=== PATIENT | female | born 1980 | race Caucasian/White ===

== ENCOUNTER → 2018-07-11 18:24 | Outpatient (CLI) | payer MEDICAID, SELFPAY ==
--- NOTE | 2018-07-11 18:34 | US_ITS ---
STUDY: ABDOMINAL ULTRASOUND - RIGHT UPPER QUADRANT REASON FOR VISIT: Female, 37 years old. Right-sided pain TECHNIQUE: Ultrasound evaluation of the right upper quadrant was performed with real-time and static juarez-scale imaging. TECHNICAL QUALITY: Adequate. COMPARISON: CT dated 10/03/2014 FINDINGS: Liver: The liver measures 12.7 cm. There is normal echogenicity of the liver. The bile ducts are within normal limits. There is hepatic color flow. The direction of portal flow is hepatopetal. There is no demonstrated mass lesion. Gallbladder: Normal distended gallbladder. The gallbladder wall measures 2 mm. There is a negative sonographic Gonzales's sign. There is no pericholecystic fluid. There are no gallstones. Common Bile Duct (C.B.D.): The common bile duct measures 5 mm. Pancreas: Normal size of the head, body and tail of the pancreas. There is normal echogenicity of the pancreas. There is no demonstrated pancreatic mass or cyst. Right Kidney: Normal size of the right kidney. The right kidney measures 9.7 cm. Normal renal cortex. There is no demonstrated renal mass or cyst. There is no right hydronephrosis. US/Abdomen Limited IMPRESSION: Normal right upper quadrant ultrasound examination. Electronically Signed: Bharath Alexander, at 20:04 EDT Tel , Service support ,
== END ==
PROVIDERS: Family Provider Internal Medicine; PCP Internal Medicine; Visit Provider Nurse Practitioner
DX: R10.9 Unspecified abdominal pain (principal)
CPT/HCPCS: 76705

== ENCOUNTER 2021-06-17 18:09 | Emergency (ER) | payer SELFPAY ==
[2021-06-17 18:10] VITALS: BP 117/71; PULSE 92; RESP 16; TEMP 36.1; O2SAT 98; BMI 27.4
--- NOTE | 2021-06-17 18:15 | RAD_ITS ---
STUDY: X-RAY - RIGHT ANKLE REASON FOR EXAM: Female, 40 years old. INJURY TECHNIQUE: 3 view(s) of the ankle. COMPARISON: None. FINDINGS: Normal visualized distal tibia and fibula. Normal medial and lateral malleoli. Normal tibiotalar articulation and ankle mortise. Normal visualized talus and calcaneus. Nondisplaced fracture of the cuboid is seen on all 3 views. Lateral foot soft tissue swelling. The soft tissue structures are unremarkable. RAD/Ankle min 3 Views IMPRESSION: Suspect cuboid fracture. Dedicated foot x-ray or CT recommended. Electronically Signed: Nishant Hillman MD ([place]) at 18:35 EDT , Service support ,
--- NOTE | 2021-06-17 19:35 | CT_ITS ---
EXAM: CT RIGHT LOWER EXTREMITY WITHOUT INTRAVENOUS CONTRAST, FOOT CLINICAL INDICATION: Fall yesterday, twisting injury of the right ankle, pain TECHNIQUE: Helically acquired images were obtained of the right foot without intravenous contrast. This CT exam was performed using one or more of the following dose reduction techniques: automated exposure control, adjustment of the mA and/or kV according to patient size, and/or use of iterative reconstruction technique. This report was created using [employer] report generation technology. COMPARISON: X-ray from earlier today FINDINGS: BONES/JOINTS: Nondisplaced fracture of the anterior calcaneal process (image 14 series 601). Nondisplaced fracture of the dorsal, proximal cuboid (image 17 series 601). Preservation of the joint space. No sclerotic or destructive changes. SOFT TISSUES: Soft tissue swelling of the lateral and anterior foot. No radiopaque foreign body. CT/Extremity Lower without Contra IMPRESSION: 1. Nondisplaced calcaneal anterior process fracture. 2. Nondisplaced cuboid fracture. Electronically Signed: Nishant Hillman MD ([place]) at 20:25 EDT , Service support ,
--- NOTE | 2021-06-17 20:08 | RAD_ITS ---
STUDY: X-RAY - RIGHT KNEE REASON FOR EXAM: Female, 40 years old. fall TECHNIQUE: 4 view(s) of the knee. COMPARISON: None. FINDINGS: Normal visualized distal femur. Normal visualized proximal tibia and fibula. Normal proximal tibiofibular articulation. Normal medial femorotibial compartment. Normal lateral femorotibial compartment. Normal patellofemoral articulation. There is no demonstrated joint effusion. The soft tissue structures are unremarkable. RAD/Knee 4 or More Views IMPRESSION: Normal x-ray examination of the knee. Electronically Signed: Nishant Hillman MD ([place]) at 20:30 EDT , Service support ,
--- NOTE | 2021-06-17 20:20 | RAD_ITS ---
STUDY: X-RAY - PELVIS AND RIGHT HIP REASON FOR EXAM: Female, 40 years old. fall TECHNIQUE: 3 views of the pelvis and hip. COMPARISON: None. FINDINGS: There is a non-specific bowel gas pattern. Normal visualized soft tissue structures. Surgical clip of the right hemipelvis. Normal bilateral iliac wings, sacroiliac joints and visualized sacrum. Normal bilateral superior and inferior pubic rami. Normal pubic symphysis. Normal bilateral ischial tuberosities. Normal visualized femoral head. Normal acetabulum. Normal hip joint. RAD/HIP, UNI W/ Pelvis 2-3 Views IMPRESSION: Normal x-ray examination of the pelvis and hip. Electronically Signed: Nishant Hillman MD ([place]) at 20:31 EDT , Service support ,
[2021-06-17] MEDS: HYDROcodone Bitartrate/Apap 5/325 Tablet PO (20:24)
--- NOTE | 2021-06-17 20:27 | EX.ED.DYSGE1 ---
HPI History of Present Illness Chief Complaint: Lower Extremity Injury Informant: patient Narrative Narrative: 40-year-old female presenting after twisting her right ankle last night. She complains of persistent pain and bruising to her right ankle and foot. She states the pain radiates to her right hip. She did not hit her head or lose consciousness. [facility] Medical History (Updated 06/17/21 @ 21:[address] Madhuri Nielson MD) Crohn's disease Kidney disease Home Medications prednisone 20 mg PO DAILY 10/03/14 [History Last Taken Unknown] hydrocodone-acetaminophen 1 tab PO Q6H PRN PRN 3 Days #10 tablet 06/17/21 [Rx Last Taken Unknown] omeprazole [Prilosec] 20 mg PO DAILY 06/17/21 [History Last Taken Unknown] Allergy/AdvReac Type Severity Reaction Status Date / Time sumatriptan [From Imitrex] AdvReac Vomiting Verified 10/03/14 14:06 sumatriptan succinate AdvReac Vomiting Verified 10/03/14 14:06 [From Imitrex] Social History Smoking Status: Never smoker ROS ROS ED Constitutional Constitutional ED: Denies fever(s) Eyes Eyes: Denies change in vision ENT ENT ED: Denies rhinorrhea or sore throat Cardiovascular Cardiovascular: Denies chest pain or palpitations Respiratory/Chest Respiratory/Chest: Denies cough or dyspnea Gastrointestinal Gastrointestinal: Denies abdominal pain, diarrhea, nausea or vomiting Genitourinary Genitourinary ED: Denies dysuria Musculoskeletal Musculoskeletal: Reports other Details: Right lower extremity pain Integumentary Denies rash Neurologic Neurologic: Denies headache(s) Psychiatric Psychiatric: Denies suicidal thoughts EXAM Physical Exam Const Vital Signs: 06/17/21 18:10 Temperature 97 F L Temperature Source Temporal Pulse Rate 92 Respiratory Rate 16 Blood Pressure 117/71 Blood Pressure Mean 86 Pulse Ox 98 Positive well nourished and well developed General Appearance ED: well developed HEENT Reports normocephalic and head/scalp atraumatic Eyes PERRL and EOMs intact bilaterally Neck supple General: Negative for tenderness Chest Wall inspection of chest normal Resp normal respiratory effort and clear to auscultation bilaterally Cardio regular rate and regular rhythm no CVA tenderness Extremity Extremity Narrative: Tenderness right lateral ankle and foot with ecchymosis. Normal pulses. Mild tenderness right lateral hip. Neuro oriented x3 and no sensory deficits noted Sensorium / Orientation: alert Motor Exam: strength 5/5 throughout Psych mental status grossly normal MDM MDM MDM Narrative Medical decision making narrative: Patient was given [place] x1 with improvement. X-rays read by myself and radiology show right ankle x-ray shows suspect cuboid fracture. Lower extremity CT was obtained and shows nondisplaced calcaneal anterior process fracture, nondisplaced cuboid fracture. Right knee and hip x-ray shows no acute process. Discussed with Dr. Wolfe. Patient was put in posterior splint with padding. Advised to follow-up with orthopedics. She was given crutches and advised nonweightbearing. Given prescription for [place]. Advised return to ED for worsening complaints. Radiography Diagnostic Testing: Radiology Impression Ankle X-Ray 06/17/21 18:15 IMPRESSION: Suspect cuboid fracture. Dedicated foot x-ray or CT recommended. Electronically Signed: Nishant Hillman MD ([place]) at 18:35 EDT , Service support , Lower Extremity CT 06/17/21 19:35 IMPRESSION: 1. Nondisplaced calcaneal anterior process fracture. 2. Nondisplaced cuboid fracture. Electronically Signed: Nishant Hillman MD ([place]) at 20:25 EDT , Service support , Knee X-Ray 06/17/21 20:08 IMPRESSION: Normal x-ray examination of the knee. Electronically Signed: Nishant Hillman MD ([place]) at 20:30 EDT , Service support , Hip/Pelvis X-Ray 06/17/21 20:20 IMPRESSION: Normal x-ray examination of the pelvis and hip. Electronically Signed: Nishant Hillman MD ([place]) at 20:31 EDT , Service support , Discharge Plan Triage Chief Complaint: Lower Extremity Injury ED Provider: Madhuri Nielson Dx/Rx/DC Orders Clinical Impression: Calcaneal fracture, Cuboid fracture Instructions: Calcaneus Prescriptions: New hydrocodone-acetaminophen 5-325 mg tablet 1 tab PO Q6H PRN PRN (Reason: Pain) 3 Days Qty: 10 RF: 0 No Action prednisone 10 MG tablet 20 mg PO DAILY RF: 0 omeprazole [Prilosec] 20 mg Capsule,Delayed Release(Dr/Ec) 20 mg PO DAILY RF: 0 Primary Care Provider: Cynthia Feliciano Referrals: Cynthia Feliciano MD [Primary Care Provider] - Bharath Wolfe MD [STAFF PHYSICIAN] - Disposition Disposition: Home, Self Care
== END 2021-06-17 22:04 | disposition home or self-care (01) ==
PROVIDERS: Emergency Provider Emergency Medicine; PCP Internal Medicine
DX: S92.024A Nondisplaced fracture of anterior process of right calcaneus, initial encounter for closed fracture (principal); S92.214A Nondisplaced fracture of cuboid bone of right foot, initial encounter for closed fracture; X50.1XXA Overexertion from prolonged static or awkward postures, initial encounter; Y93.9 Activity, unspecified; Y92.9 Unspecified place or not applicable; Y99.9 Unspecified external cause status
CPT/HCPCS: 29515; 73502; 73564; 73610; 73700; 99284